=== PATIENT | female | born 1985 | race African-American/Black ===

== ENCOUNTER 2016-11-21 14:39 | Emergency (ER) | payer OTHER ==
[~2016-11-21] VITALS: Ht 172.7 cm; Wt 81.7 kg
[~2016-11-21 14:39] MED LIST: BENADRYL25 MG PO; CIPROFLOXACIN500 M1 PO; COLACE100 MG PO; DIPHENHIST50 MG PO; ESTRACE1 MG PO; EXCEDRIN MIGRA1 EAC1 PO; FLAGYL500 MG PO; GENTAMICIN SU3 MG/ML OP; HYDROCODON-ACE1 EAC5 PO; HYDROCODON-ACE1 EACH; IBUPROFEN 400400 M1 PO; IBUPROFEN 600600 M1 PO; IBUPROFEN 800800 M1 PO; IRON; IRON325 PO; LEVAQUIN 500 M500 MG PO; MEDROL DOSPAK21 TAB PO; MIRENA1 EACH INTRAUTERI; NAPROSYN500 MG; NAPROSYN500 MG PO; NEXIUM20 MG PO; NEXIUM40 MG PO; NOHOMEMEDICATIONS; NORCO 5-325 TA1 EACH PO; ONDANSETRON HCL4 M2 PO; OSELB75 PO; PENICILLIN V P500 MG PO; PHENERGAN 25 MG25 M1 PO; PHENERGAN50 MG RC; PREDNISONE 20 M20 MG PO; PREMPRO 0.3 MG1 EACH PO; PROVENTIL HFA6.7 G1 INH; REGLAN 5 MG TAB5 MG PO; SENNA LAX8.6 MG PO; SENNA-S TABLET1 EACH PO; SIMETHICON CHEW80 M1 PO; SULFACETAMIDE 115 M1 OP; TESSALON PERLE100 MG PO; TRAMADOL 50 MG50 MG PO; TYLENOL325 MG; VENTOLIN HFA 1818 GM INH; VISTARIL 25 MG25 M1 PO; ZANAFLEX4 MG PO; ZOFRAN ODT4 MG PO; ZPAK PO
[2016-11-21] MEDS ORDERED: IBUPROFEN 800800 M1 PO (15:12)
== END 2016-11-21 15:19 | disposition home or self-care (01) ==
LOC: ER 14:39
DX: S80.01XA Contusion of right knee, initial encounter (principal); K58.9 Irritable bowel syndrome, unspecified; Z86.2 Personal history of diseases of the blood and blood-forming organs and certain disorders involving the immune mechanism; Z90.89 Acquired absence of other organs; Z90.710 Acquired absence of both cervix and uterus; W10.9XXA Fall (on) (from) unspecified stairs and steps, initial encounter; Y93.89 Activity, other specified; Y92.89 Other specified places as the place of occurrence of the external cause; Y99.9 Unspecified external cause status

== ENCOUNTER 2016-12-04 17:56 | Emergency (ER) | payer OTHER ==
[~2016-12-04] VITALS: Ht 167.6 cm; Wt 89.4 kg
[2016-12-04 18:22] LABS: URINE BILIRUBIN NEGATIVE (Negative); URINE BLOOD NEGATIVE (Negative); URINE COLOR YELLOW; URINE GLUCOSE-RANDOM* NEGATIVE (Negative); URINE KETONES NEGATIVE (Negative); URINE LEUKOCYTES-REFLEX NEGATIVE (Negative); URINE PROTEIN (DIPSTICK) NEGATIVE (Negative)
[2016-12-04 18:56] LABS: ABSOLUTE NEUTROPHILS 4.1 thou/uL (1.4-8.2); BASOPHILS 0.7 % (0.0-2.0); EOSINOPHILS 1.8 % (0.0-3.0); HEMATOCRIT 38.8 % (37.0-47.0); LYMPHOCYTES 43.1 % (24.0-44.0); MCH 31.4 pg (26.0-34.0); MCHC 33.5 g/dL (28.0-37.0); MCV 93.5 fL (80.0-100.0); MONOCYTES 9.1 % (1.0-8.0); PLATELET COUNT 415 thou/uL (150-400); POLYS 45.3 % (36.0-66.0); RBC 4.15 mil/uL (4.20-5.00); RDW 13.9 % (10.5-14.5); WBC 9.1 thou/uL (4.0-11.0)
[2016-12-04 18:57] LABS: MANUAL DIFF NO
[2016-12-04 19:03] LABS: CALCIUM 9.1 mg/dL (8.5-10.1); POTASSIUM 4.1 mmol/L (3.5-5.1)
[2016-12-04 19:07] LABS: ALBUMIN 4.3 g/dL (3.4-5.0); TOTAL BILIRUBIN 0.4 mg/dL (<0.1-1.0); TOTAL PROTEIN 8.3 g/dL (6.4-8.2)
[2016-12-04] MEDS ORDERED: BENTYL 20 MG TA20 M1 PO (19:12)
[2016-12-04] MEDS ORDERED: PEPCID20 MG PO (19:12)
== END 2016-12-04 19:47 | disposition home or self-care (01) ==
LOC: ER 17:56
PROVIDERS: Emergency Medicine
DX: R10.13 Epigastric pain (principal); R10.11 Right upper quadrant pain; K58.9 Irritable bowel syndrome, unspecified; Z86.2 Personal history of diseases of the blood and blood-forming organs and certain disorders involving the immune mechanism; Z90.49 Acquired absence of other specified parts of digestive tract; Z90.710 Acquired absence of both cervix and uterus

== ENCOUNTER 2017-04-30 20:23 | Emergency (ER) | payer OTHER ==
[~2017-04-30] VITALS: Ht 167.6 cm; Wt 89.8 kg
[~2017-04-30 20:23] MED LIST changes: +BENTYL 20 MG TA20 M1 PO; +PEPCID20 MG PO
[2017-04-30 21:34] LABS: ABSOLUTE NEUTROPHILS 4.9 thou/uL (1.4-8.2); BASOPHILS 1.5 % (0.0-2.0); EOSINOPHILS 2.8 % (0.0-3.0); HEMATOCRIT 39.7 % (37.0-47.0); HEMOGLOBIN 12.9 gm/dL (12.0-15.0); LYMPHOCYTES 46.4 % (24.0-44.0); MANUAL DIFF NO; MCH 30.1 pg (26.0-34.0); MCHC 32.5 g/dL (28.0-37.0); MCV 92.5 fL (80.0-100.0); MONOCYTES 5.9 % (1.0-8.0); PLATELET COUNT 423 thou/uL (150-400); POLYS 43.4 % (36.0-66.0); RDW 14.2 % (10.5-14.5); WBC 11.3 thou/uL (4.0-11.0)
[2017-04-30 21:38] LABS: URINE BILIRUBIN NEGATIVE (Negative); URINE BLOOD NEGATIVE (Negative); URINE COLOR YELLOW; URINE GLUCOSE-RANDOM* NEGATIVE (Negative); URINE KETONES NEGATIVE (Negative); URINE PROTEIN (DIPSTICK) NEGATIVE (Negative); URINE SPECIFIC GRAVITY 1.025 (1.003-1.035); URINE UROBILINOGEN 0.2 E.U./dl (0.2-1.0)
[2017-04-30 21:41] LABS: CALCIUM 9.7 mg/dL (8.5-10.1); CREATININE 0.9 mg/dL (0.6-1.0); POTASSIUM 3.9 mmol/L (3.5-5.1)
[2017-04-30 21:51] LABS: URINE LEUKOCYTES-REFLEX 1+ (Negative)
[2017-04-30 22:09] LABS: CASTS None Seen /LPF (None Seen); SQUAMOUS 4-10 Moderate /LPF (0-3)
[2017-04-30 22:10] LABS: CRYSTALS None Seen /LPF (None Seen); URINE RBC None Seen /HPF (0-2); URINE WBC-REFLEX 0-5 Rare /HPF (0-5)
[2017-04-30] MEDS ORDERED: ROBAXIN500 MG PO (22:52)
[2017-04-30] MEDS ORDERED: NAPROSYN500 MG PO (22:52)
== END 2017-04-30 23:24 | disposition home or self-care (01) ==
LOC: ER 20:23
PROVIDERS: Emergency Medicine
DX: S16.1XXA Strain of muscle, fascia and tendon at neck level, initial encounter (principal); S40.011A Contusion of right shoulder, initial encounter; S50.01XA Contusion of right elbow, initial encounter; S80.01XA Contusion of right knee, initial encounter; F10.99 Alcohol use, unspecified with unspecified alcohol-induced disorder; Z86.2 Personal history of diseases of the blood and blood-forming organs and certain disorders involving the immune mechanism; V89.0XXA Person injured in unspecified motor-vehicle accident, nontraffic, initial encounter; Y93.89 Activity, other specified; Y92.89 Other specified places as the place of occurrence of the external cause; Y99.8 Other external cause status

== ENCOUNTER 2017-05-10 02:14 | Emergency (ER) | payer OTHER ==
[~2017-05-10] VITALS: Ht 167.6 cm; Wt 89.8 kg
[~2017-05-10 02:14] MED LIST changes: +ROBAXIN500 MG PO
== END 2017-05-10 03:05 | disposition home or self-care (01) ==
LOC: ER 02:14
DX: M79.605 Pain in left leg (principal); F10.99 Alcohol use, unspecified with unspecified alcohol-induced disorder; Z86.2 Personal history of diseases of the blood and blood-forming organs and certain disorders involving the immune mechanism; V89.2XXA Person injured in unspecified motor-vehicle accident, traffic, initial encounter; Y93.89 Activity, other specified; Y92.89 Other specified places as the place of occurrence of the external cause; Y99.8 Other external cause status

== ENCOUNTER 2017-08-11 17:27 | Emergency (ER) | payer OTHER ==
[~2017-08-11] VITALS: Ht 167.6 cm; Wt 90.7 kg
[2017-08-11 17:52] LABS: URINE BILIRUBIN NEGATIVE (Negative); URINE BLOOD TRACE (Negative); URINE CLARITY CLEAR; URINE COLOR YELLOW; URINE GLUCOSE-RANDOM* NEGATIVE (Negative); URINE KETONES NEGATIVE (Negative); URINE LEUKOCYTES NEGATIVE (Negative); URINE NITRITE NEGATIVE (Negative); URINE PROTEIN (DIPSTICK) NEGATIVE (Negative); URINE SPECIFIC GRAVITY <= 1.005 (1.005-1.035); URINE UROBILINOGEN 0.2 E.U./dl (0.2-1.0)
[2017-08-11 17:54] LABS: ABSOLUTE NEUTROPHILS 4.3 thou/uL (1.4-8.2); BASOPHILS 1.3 % (0.0-2.0); EOSINOPHILS 2.7 % (0.0-3.0); HEMATOCRIT 35.4 % (37.0-47.0); HEMOGLOBIN 11.9 gm/dL (12.0-15.0); LYMPHOCYTES 45.9 % (24.0-44.0); MCH 31.3 pg (26.0-34.0); MCHC 33.7 g/dL (28.0-37.0); MCV 92.6 fL (80.0-100.0); MONOCYTES 6.3 % (1.0-8.0); PLATELET COUNT 427 thou/uL (150-400); POLYS 43.8 % (36.0-66.0); RBC 3.82 mil/uL (4.20-5.00); RDW 13.6 % (10.5-14.5); WBC 9.8 thou/uL (4.0-11.0)
[2017-08-11] MEDS ORDERED: PROAIR HFA8.5 GM (17:55)
[2017-08-11 18:00] LABS: CREATININE 1.1 mg/dL (0.6-1.0); POTASSIUM 3.6 mmol/L (3.5-5.1)
[2017-08-11 18:06] LABS: TOTAL BILIRUBIN 0.2 mg/dL (<0.1-1.0); TOTAL PROTEIN 7.6 g/dL (6.4-8.2)
[2017-08-11 18:57] VITALS: BP 119/76
[2018-03-24] MEDS ORDERED: VENTOLIN HFA 1818 GM INH (21:11)
[2018-03-24] MEDS ORDERED: AMOXICILLIN 50500 MG PO (21:44)
[2018-03-24] MEDS ORDERED: ULTRAM 50MG TAB50 MG PO (21:44)
== END 2017-08-11 18:59 | disposition home or self-care (01) ==
LOC: ER 17:27
PROVIDERS: Nurse Practitioner Family
DX: R31.9 Hematuria, unspecified (principal); R10.31 Right lower quadrant pain; R51 Headache; Z90.710 Acquired absence of both cervix and uterus; K58.9 Irritable bowel syndrome, unspecified

== ENCOUNTER 2017-10-26 10:54 | Emergency (ER) | payer OTHER ==
[~2017-10-26] VITALS: Ht 167.6 cm; Wt 90.7 kg
[~2017-10-26 10:54] MED LIST changes: +PROAIR HFA8.5 GM
[2017-10-26 11:17] LABS: URINE BILIRUBIN NEGATIVE (Negative); URINE BLOOD 2+ (Negative); URINE CLARITY CLEAR; URINE COLOR YELLOW; URINE GLUCOSE-RANDOM* NEGATIVE (Negative); URINE KETONES NEGATIVE (Negative); URINE LEUKOCYTES 2+ (Negative); URINE NITRITE NEGATIVE (Negative); URINE PROTEIN (DIPSTICK) NEGATIVE (Negative); URINE UROBILINOGEN 0.2 E.U./dl (0.2-1.0)
[2017-10-26 11:24] LABS: BACTERIA None Seen /HPF (None Seen); CASTS None Seen /LPF (None Seen); CRYSTALS None Seen /LPF (None Seen); SQUAMOUS 4-10 Moderate /LPF (0-3); URINE RBC 0-2 Rare /HPF (0-2); URINE WBC 0-5 Rare /HPF (0-5)
[2017-10-26 11:26] LABS: ABSOLUTE NEUTROPHILS 3.9 thou/uL (1.4-8.2); BASOPHILS 1.3 % (0.0-2.0); EOSINOPHILS 2.3 % (0.0-3.0); HEMATOCRIT 38.3 % (37.0-47.0); HEMOGLOBIN 12.7 gm/dL (12.0-15.0); LYMPHOCYTES 42.5 % (24.0-44.0); MCH 30.6 pg (26.0-34.0); MCHC 33.2 g/dL (28.0-37.0); MCV 92.2 fL (80.0-100.0); PLATELET COUNT 394 thou/uL (150-400); POLYS 47.9 % (36.0-66.0); RBC 4.16 mil/uL (4.20-5.00); RDW 14.5 % (10.5-14.5); WBC 8.1 thou/uL (4.0-11.0)
[2017-10-26 11:37] LABS: CALCIUM 9.4 mg/dL (8.5-10.1); CREATININE 1.1 mg/dL (0.6-1.0); POTASSIUM 3.6 mmol/L (3.5-5.1)
== END 2017-10-26 12:30 | disposition home or self-care (01) ==
LOC: ER 10:54
PROVIDERS: Emergency Medicine
DX: N99.820 Postprocedural hemorrhage of a genitourinary system organ or structure following a genitourinary system procedure (principal); N89.8 Other specified noninflammatory disorders of vagina; Z90.710 Acquired absence of both cervix and uterus

== ENCOUNTER 2017-11-25 09:33 | Emergency (ER) | payer OTHER ==
[~2017-11-25] VITALS: Ht 167.6 cm; Wt 90.7 kg
[2017-11-25 10:40] LABS: URINE BILIRUBIN NEGATIVE (Negative); URINE BLOOD NEGATIVE (Negative); URINE CLARITY CLEAR; URINE COLOR YELLOW; URINE GLUCOSE-RANDOM* NEGATIVE (Negative); URINE KETONES NEGATIVE (Negative); URINE LEUKOCYTES-REFLEX NEGATIVE (Negative); URINE NITRITE-REFLEX NEGATIVE (Negative); URINE PROTEIN (DIPSTICK) NEGATIVE (Negative); URINE SPECIFIC GRAVITY 1.025 (1.005-1.035); URINE UROBILINOGEN 0.2 E.U./dl (0.2-1.0)
[2017-11-25 10:51] LABS: CREATININE 0.9 mg/dL (0.6-1.0); POTASSIUM 4.3 mmol/L (3.5-5.1)
[2017-11-25 10:57] LABS: ALBUMIN 3.9 g/dL (3.4-5.0); TOTAL BILIRUBIN 0.4 mg/dL (<0.1-1.0); TOTAL PROTEIN 7.5 g/dL (6.4-8.2)
[2017-11-25 11:32] LABS: ABSOLUTE NEUTROPHILS 3.9 thou/uL (1.4-8.2); BASOPHILS 1.1 % (0.0-2.0); EOSINOPHILS 1.8 % (0.0-3.0); HEMOGLOBIN 13.3 gm/dL (12.0-15.0); MCH 30.9 pg (26.0-34.0); MCHC 33.3 g/dL (28.0-37.0); MCV 92.8 fL (80.0-100.0); MONOCYTES 5.2 % (1.0-8.0); PLATELET COUNT 362 thou/uL (150-400); POLYS 47.9 % (36.0-66.0); RBC 4.31 mil/uL (4.20-5.00); RDW 14.1 % (10.5-14.5); WBC 8.2 thou/uL (4.0-11.0)
[2017-11-25] MEDS ORDERED: DIFLUCAN150 MG PO (11:58)
[2017-11-25] MEDS ORDERED: PEPCID20 MG PO (11:58)
[2017-11-26 16:07] LABS: NEISSERIA GONORRHEA-PCR Negative (Negative)
== END 2017-11-25 12:10 | disposition home or self-care (01) ==
LOC: ER 09:33
PROVIDERS: Physician Assistant
DX: B37.9 Candidiasis, unspecified (principal); R10.13 Epigastric pain; Z90.710 Acquired absence of both cervix and uterus; Z90.49 Acquired absence of other specified parts of digestive tract; Z86.2 Personal history of diseases of the blood and blood-forming organs and certain disorders involving the immune mechanism

== ENCOUNTER 2018-01-03 12:12 | Emergency (ER) | payer OTHER ==
[~2018-01-03] VITALS: Ht 167.6 cm; Wt 90.7 kg
[~2018-01-03 12:12] MED LIST changes: +DIFLUCAN150 MG PO
[2018-01-03] MEDS ORDERED: ZYRTEC10 M2 PO (12:45)
[2018-01-03] MEDS ORDERED: MEDROLDOSEPACK PO (12:45)
== END 2018-01-03 13:17 | disposition home or self-care (01) ==
LOC: ER 12:12
DX: L23.7 Allergic contact dermatitis due to plants, except food (principal); J45.909 Unspecified asthma, uncomplicated; Z90.710 Acquired absence of both cervix and uterus

== ENCOUNTER 2018-07-07 08:01 | Emergency (ER) | payer BC ==
[~2018-07-07] VITALS: Ht 167.6 cm; Wt 81.7 kg
[~2018-07-07 08:01] MED LIST changes: +AMOXICILLIN 50500 MG PO; +MEDROLDOSEPACK PO; +ULTRAM 50MG TAB50 MG PO; +ZYRTEC10 M2 PO
[2018-07-07 08:55] LABS: ABSOLUTE NEUTROPHILS 4.9 thou/uL (1.4-8.2); BASOPHILS 2.6 % (0.0-2.0); EOSINOPHILS 1.9 % (0.0-3.0); HEMATOCRIT 39.3 % (37.0-47.0); HEMOGLOBIN 13.1 gm/dL (12.0-15.0); LYMPHOCYTES 34.9 % (24.0-44.0); MCH 31.5 pg (26.0-34.0); MCHC 33.3 g/dL (28.0-37.0); MCV 94.5 fL (80.0-100.0); MONOCYTES 5.9 % (1.0-8.0); PLATELET COUNT 385 thou/uL (150-400); POLYS 54.7 % (36.0-66.0); RBC 4.15 mil/uL (4.20-5.00); RDW 14.1 % (10.5-14.5); WBC 8.9 thou/uL (4.0-11.0)
[2018-07-07 09:09] LABS: CALCIUM 9.1 mg/dL (8.5-10.1); CREATININE 0.9 mg/dL (0.6-1.0)
[2018-07-07 09:14] LABS: ALBUMIN 3.8 g/dL (3.4-5.0); DIRECT BILIRUBIN 0.1 mg/dL (<0.1-0.3); TOTAL BILIRUBIN 0.5 mg/dL (<0.1-1.0); TOTAL PROTEIN 7.8 g/dL (6.4-8.2)
[2018-07-07 09:15] LABS: URINE BILIRUBIN NEGATIVE (Negative); URINE BLOOD NEGATIVE (Negative); URINE CLARITY CLEAR; URINE COLOR YELLOW; URINE GLUCOSE-RANDOM* NEGATIVE (Negative); URINE KETONES NEGATIVE (Negative); URINE LEUKOCYTES-REFLEX NEGATIVE (Negative); URINE NITRITE-REFLEX NEGATIVE (Negative); URINE PROTEIN (DIPSTICK) NEGATIVE (Negative); URINE SPECIFIC GRAVITY >= 1.030 (1.005-1.035); URINE UROBILINOGEN 0.2 E.U./dl (0.2-1.0)
[2018-07-07] MEDS ORDERED: CARAFATE 1 GM TA1 G1 PO (10:29)
[2018-07-07 11:19] VITALS: BP 124/79
== END 2018-07-07 11:19 | disposition home or self-care (01) ==
LOC: ER 08:01
PROVIDERS: Emergency Medicine
DX: R10.13 Epigastric pain (principal); R10.30 Lower abdominal pain, unspecified; R11.2 Nausea with vomiting, unspecified; K58.9 Irritable bowel syndrome, unspecified; Z86.2 Personal history of diseases of the blood and blood-forming organs and certain disorders involving the immune mechanism; Z90.49 Acquired absence of other specified parts of digestive tract; Z90.710 Acquired absence of both cervix and uterus

== ENCOUNTER 2018-09-08 20:05 | Emergency (ER) | payer BC ==
[~2018-09-08] VITALS: Ht 167.6 cm; Wt 83.9 kg
[~2018-09-08 20:05] MED LIST changes: +CARAFATE 1 GM TA1 G1 PO
[2018-09-08 20:53] LABS: URINE BILIRUBIN NEGATIVE (Negative); URINE BLOOD NEGATIVE (Negative); URINE CLARITY CLEAR; URINE COLOR YELLOW; URINE GLUCOSE-RANDOM* NEGATIVE (Negative); URINE KETONES NEGATIVE (Negative); URINE LEUKOCYTES-REFLEX NEGATIVE (Negative); URINE NITRITE-REFLEX NEGATIVE (Negative); URINE PROTEIN (DIPSTICK) NEGATIVE (Negative); URINE SPECIFIC GRAVITY >= 1.030 (1.005-1.035); URINE UROBILINOGEN 0.2 E.U./dl (0.2-1.0)
[2018-09-08 21:10] LABS: ABSOLUTE NEUTROPHILS 3.9 thou/uL (1.4-8.2); BASOPHILS 1.1 % (0.0-2.0); HEMATOCRIT 38.2 % (37.0-47.0); HEMOGLOBIN 12.6 gm/dL (12.0-15.0); LYMPHOCYTES 45.2 % (24.0-44.0); MCH 31.2 pg (26.0-34.0); MCHC 32.9 g/dL (28.0-37.0); MCV 94.6 fL (80.0-100.0); MONOCYTES 7.9 % (1.0-8.0); PLATELET COUNT 339 thou/uL (150-400); POLYS 43.8 % (36.0-66.0); RBC 4.04 mil/uL (4.20-5.00); RDW 13.6 % (10.5-14.5); WBC 8.9 thou/uL (4.0-11.0)
[2018-09-08 21:19] LABS: CALCIUM 8.9 mg/dL (8.5-10.1); CREATININE 0.8 mg/dL (0.6-1.0); POTASSIUM 3.7 mmol/L (3.5-5.1)
[2018-09-08 21:23] LABS: ALBUMIN 3.9 g/dL (3.4-5.0); TOTAL BILIRUBIN 0.2 mg/dL (<0.1-1.0); TOTAL PROTEIN 7.8 g/dL (6.4-8.2)
[2018-09-08] MEDS ORDERED: IBUPROFEN 600600 M1 PO (22:01)
[2018-09-08] MEDS ORDERED: ULTRAM 50MG TAB50 MG PO (22:01)
[2018-09-08 22:47] VITALS: BP 122/68
== END 2018-09-08 22:48 | disposition home or self-care (01) ==
LOC: ER 20:05
PROVIDERS: Emergency Medicine
DX: R10.31 Right lower quadrant pain (principal); K58.9 Irritable bowel syndrome, unspecified; Z86.2 Personal history of diseases of the blood and blood-forming organs and certain disorders involving the immune mechanism; Z90.49 Acquired absence of other specified parts of digestive tract; Z90.710 Acquired absence of both cervix and uterus

== ENCOUNTER 2018-10-08 12:45 | Emergency (ER) | payer OTHER ==
[~2018-10-08] VITALS: Ht 167.6 cm; Wt 86.2 kg
[2018-10-08 12:46] VITALS: BP 111/72
[2018-10-08] MEDS ORDERED: KEFLEX500 M1 PO (13:05)
[2018-10-08] MEDS ORDERED: CORTISONE60 GM TOP (13:05)
== END 2018-10-08 13:23 | disposition home or self-care (01) ==
LOC: ER 12:45
DX: S50.862A Insect bite (nonvenomous) of left forearm, initial encounter (principal); L03.114 Cellulitis of left upper limb; W57.XXXA Bitten or stung by nonvenomous insect and other nonvenomous arthropods, initial encounter; Y93.89 Activity, other specified; Y92.89 Other specified places as the place of occurrence of the external cause; Y99.8 Other external cause status

== ENCOUNTER 2019-03-21 02:56 | Emergency (ER) | payer OTHER ==
[~2019-03-21] VITALS: Ht 167.6 cm; Wt 93.0 kg
[~2019-03-21 02:56] MED LIST changes: +CORTISONE60 GM TOP; +KEFLEX500 M1 PO
[2019-03-21] MEDS ORDERED: ESOMEPRAZOLE MA20 MG PO (03:58)
[2019-03-21 04:40] LABS: BASOPHILS 1.2 % (0.0-2.0); HEMATOCRIT 37.9 % (37.0-47.0); HEMOGLOBIN 12.3 gm/dL (12.0-15.0); LYMPHOCYTES 43.1 % (24.0-44.0); MCH 30.6 pg (26.0-34.0); MCHC 32.5 g/dL (28.0-37.0); MCV 94.2 fL (80.0-100.0); MONOCYTES 6.8 % (1.0-8.0); PLATELET COUNT 369 thou/uL (150-400); POLYS 45.9 % (36.0-66.0); RBC 4.03 mil/uL (4.20-5.00); RDW 13.6 % (10.5-14.5); WBC 8.6 thou/uL (4.0-11.0)
[2019-03-21 04:44] LABS: CALCIUM 9.2 mg/dL (8.5-10.1); CREATININE 1.1 mg/dL (0.6-1.0)
[2019-03-21 06:11] VITALS: BP 134/72
--- NOTE | 2019-03-21 14:46 | EKG ---
[address] [address] ELECTROCARDIOGRAM REPORT Name: ANGELIKA CAMARENA GURDEEP Room #: [facility] [id number] Admission: 03/21/19 Attend Phys: Discharge: 03/21/19 Date of : 83 Report #: [id number] THIS REPORT FOR: //name// [facility] ED Test Date: 2019-03-21 Test Time: 03:03:34 Pat Name: ANGELIKA CAMARENA Department: Room: Gender: F Blade Boner: MIGUEL : 1985 Requested By: Sierra Ann Order Number: [id number] MD: Colton Vera Measurements Intervals [place] Rate: 59 P: 32 CT: 155 QRS: 22 QRSD: 95 T: 31 QT: 428 QTc: 424 Interpretive Statements Sinus rhythm Compared to ECG 03/29/2014 18:23:06 Sinus tachycardia no longer present Electronically Signed On 03-21-2019 14:46:31 CDT by Colton Vera [email or web address] <ELECTRONICALLY SIGNED> By: Colton Vrea MD 03/21/19 1446 [id number] [id number] Colton Vera MD /EPI
== END 2019-03-21 06:14 | disposition home or self-care (01) ==
LOC: ER 02:56
PROVIDERS: Emergency Medicine
DX: R07.89 Other chest pain (principal); M79.661 Pain in right lower leg; K58.9 Irritable bowel syndrome, unspecified; Z86.2 Personal history of diseases of the blood and blood-forming organs and certain disorders involving the immune mechanism; Z90.49 Acquired absence of other specified parts of digestive tract; Z90.710 Acquired absence of both cervix and uterus

== ENCOUNTER 2019-08-14 08:08 | Emergency (ER) | payer OTHER ==
[~2019-08-14] VITALS: Ht 167.6 cm; Wt 89.8 kg
[~2019-08-14 08:08] MED LIST changes: +ESOMEPRAZOLE MA20 MG PO
[2019-08-14 09:08] LABS: URINE BILIRUBIN NEGATIVE (Negative); URINE BLOOD NEGATIVE (Negative); URINE CLARITY CLEAR; URINE GLUCOSE-RANDOM* NEGATIVE (Negative); URINE KETONES NEGATIVE (Negative); URINE LEUKOCYTES-REFLEX NEGATIVE (Negative); URINE NITRITE-REFLEX NEGATIVE (Negative); URINE PROTEIN (DIPSTICK) NEGATIVE (Negative); URINE SPECIFIC GRAVITY >= 1.030 (1.005-1.035); URINE UROBILINOGEN 0.2 E.U./dl (0.2-1.0)
[2019-08-14 09:10] LABS: URINE COLOR AMBER
[2019-08-14 09:10] LABS: BASOPHILS 1.6 % (0.0-2.0); EOSINOPHILS 2.4 % (0.0-3.0); HEMATOCRIT 39.8 % (37.0-47.0); HEMOGLOBIN 12.9 gm/dL (12.0-15.0); LYMPHOCYTES 33.1 % (24.0-44.0); MCH 30.9 pg (26.0-34.0); MCHC 32.4 g/dL (28.0-37.0); MCV 95.4 fL (80.0-100.0); MONOCYTES 6.6 % (1.0-8.0); PLATELET COUNT 367 thou/uL (150-400); POLYS 56.3 % (36.0-66.0); RBC 4.17 mil/uL (4.20-5.00); RDW 13.9 % (10.5-14.5); WBC 7.2 thou/uL (4.0-11.0)
[2019-08-14 09:15] LABS: CREATININE 1.1 mg/dL (0.6-1.0); POTASSIUM 3.9 mmol/L (3.5-5.1)
[2019-08-14 09:20] LABS: ALBUMIN 4.1 g/dL (3.4-5.0); TOTAL BILIRUBIN 0.4 mg/dL (<0.1-1.0); TOTAL PROTEIN 8.5 g/dL (6.4-8.2)
[2019-08-14 11:13] VITALS: BP 110/66
== END 2019-08-14 11:14 | disposition home or self-care (01) ==
LOC: ER 08:08
PROVIDERS: Emergency Medicine
DX: R10.84 Generalized abdominal pain (principal); K58.9 Irritable bowel syndrome, unspecified; Z90.49 Acquired absence of other specified parts of digestive tract; Z90.710 Acquired absence of both cervix and uterus; Z86.2 Personal history of diseases of the blood and blood-forming organs and certain disorders involving the immune mechanism

== ENCOUNTER 2020-02-07 17:11 | Emergency (ER) | payer OTHER ==
[~2020-02-07] VITALS: Ht 167.6 cm; Wt 90.7 kg
[2020-02-07 17:38] LABS: ABSOLUTE NEUTROPHILS 4.2 thou/uL (1.4-8.2); BASOPHILS 0.4 % (0.0-2.0); EOSINOPHILS 2.3 % (0.0-3.0); HEMATOCRIT 37.4 % (37.0-47.0); HEMOGLOBIN 12.7 gm/dL (12.0-15.0); LYMPHOCYTES 39.6 % (24.0-44.0); MCH 31.9 pg (26.0-34.0); MCV 93.9 fL (80.0-100.0); MONOCYTES 5.1 % (1.0-8.0); PLATELET COUNT 338 thou/uL (150-400); POLYS 52.6 % (36.0-66.0); RBC 3.98 mil/uL (4.20-5.00); RDW 14.2 % (10.5-14.5)
[2020-02-07 17:46] LABS: ANION GAP 7 mmol/L (7-16); BUN 15 mg/dL (7-18); CALCIUM 8.9 mg/dL (8.5-10.1); CHLORIDE 105 mmol/L (98-107); CO2 27 mmol/L (21-32); CREATININE 1.1 mg/dL (0.6-1.0); GLUCOSE 97 mg/dL (74-106); SODIUM 139 mmol/L (136-145)
[2020-02-07 17:56] LABS: SGOT 13 U/L (15-37); SGPT 17 U/L (30-65); TOTAL BILIRUBIN 0.3 mg/dL (0.2-1.0); TOTAL PROTEIN 7.7 g/dL (6.4-8.2); TROPONIN-I <0.06 ng/mL (<0.06)
[2020-02-07] MEDS ORDERED: MOBIC7.5 MG PO (19:29)
[2020-02-07 19:40] VITALS: BP 124/72
--- NOTE | 2020-02-09 07:58 | EKG ---
[facility] [place] [address] ELECTROCARDIOGRAM REPORT Name: ANGELIKA CAMARENA Room #: DEP [facility].#: [id number] Admission: 02/07/20 Attend Phys: Discharge: 02/07/20 Date of : 83 Report #: [id number] THIS REPORT FOR: cc: Leanna Trinidad MD, Nora P. MD Lundgren, Craig H. MD [facility] THIS REPORT FOR: //name// [facility] ED Test Date: 2020-02-07 Test Time: 17:18:50 Pat Name: ANGELIKA CAMARENA Department: Room: Gender: Pigment Presser: ARGENIS : 1985 Requested By: Elvira Jorgensen Order Number: [id number] MD: Regan Ferro Measurements Intervals [place] Rate: 72 P: 35 MN: 151 QRS: 32 QRSD: 85 T: 38 QT: 402 QTc: 440 Interpretive Statements Sinus rhythm Normal tracing Compared to ECG 03/21/2019 03:03:34 No significant changes Electronically Signed On 02-09-2020 7:58:32 CDT by Regan Ferro [email or web address] <ELECTRONICALLY SIGNED> By: Regan Ferro MD, [facility] 02/09/20 0758 1718 1718 Regan Ferro MD, [facility] /EPI
== END 2020-02-07 19:41 | disposition home or self-care (01) ==
LOC: ER 17:11
PROVIDERS: Emergency Medicine
DX: R07.89 Other chest pain (principal); Z79.899 Other long term (current) drug therapy; Z90.710 Acquired absence of both cervix and uterus

== ENCOUNTER → 2020-09-13 | Outpatient (CLI) | payer OTHER ==
[~2020-09-13] MED LIST changes: +MOBIC7.5 MG PO
== END ==
LOC: LAB 11:18
PROVIDERS: ATTEND Family Medicine
DX: M79.10 Myalgia, unspecified site (principal); R09.81 Nasal congestion; R68.83 Chills (without fever); R11.0 Nausea; Z20.822 Contact with and (suspected) exposure to COVID-19